=== PATIENT | male | born 1950 | race Caucasian/White ===

== ENCOUNTER 2017-01-21 22:08 | Emergency (ER) | payer OTHER ==
[~2017-01-21] VITALS: Ht 167.6 cm; Wt 86.2 kg
[2017-01-21 22:11] VITALS: BP 176/85
[2017-01-21] MEDS ORDERED: ACETAMINOPHEN ES 500 MG TABLET PO ONE (23:00)
[2017-01-21] MEDS ORDERED: ACETAMINOPHEN ES 500 MG TABLET ONE (23:14)
== END 2017-01-22 00:15 | disposition home or self-care (01) ==
LOC: ER 22:10
DX: S09.90XA Unspecified injury of head, initial encounter (principal); R51 Headache; I10 Essential (primary) hypertension; V49.40XA Driver injured in collision with unspecified motor vehicles in traffic accident, initial encounter; Y93.89 Activity, other specified; Y92.89 Other specified places as the place of occurrence of the external cause; Y99.9 Unspecified external cause status
CPT/HCPCS: 70450; 99284; A4606; Z7610